=== PATIENT | male | born 1960 | race Caucasian/White ===

== ENCOUNTER → 2016-11-17 | Outpatient (CLI) | payer MEDICARE ==
[2016-11-19 08:56] LABS: PROSTATE SPECIFIC ANTIGEN 0.9 ng/mL (0.0-4.0); PSA % FREE 24.4 % (.); PSA FREE 0.22 ng/mL
== END ==
LOC: OD 13:36
PROVIDERS: ATTEND Urology
DX: N40.1 Benign prostatic hyperplasia with lower urinary tract symptoms (principal)
CPT/HCPCS: 36415; 84154